=== PATIENT | female | born 1950 | race Caucasian/White ===

== ENCOUNTER 2018-02-19 08:44 | Day surgery (SDC) | payer MEDICARE, OTHER, SELFPAY ==
--- NOTE | 2018-02-19 | PATH_ITS ---
[facility] Accession Number: [id number] . 01 Material submitted: . BIOPSY OF GASTRIC ULCER . 02 Diagnosis: Specimen Designated Biopsy Gastric Ulcer: Fragments of gastric fundic mucosa with foveolar hyperplasia, mucosal hyperemia, without associated significant inflammation. Negative for evidence of ulceration. Negative for evidence of Helicobacter on H/E stain. Negative for intestinal metaplasia. . . . COMMENT: Case reviewed by Dr. Rob Silver who concurs with the diagnosis. MRV/02/20/2018 . 02 Electronically signed: . Alf Castillo MD, Pathologist NPI- [id number] . 01 Gross description: . Received in one formalin-filled container, labeled with the patient's name, labeled gastric ulcer, are two 0.2 cm portions of tissue, entirely submitted in one cassette. ([id number]) /FRR . 02 Pathologist provided ICD-10: K31.89 . 02 CPT . 994578 Performed at: 01 [facility] [address] [facility], [place], [place] [id number] MD Paxton Farrar MD Phone: [phone] Performed at: 02 [facility] [place] [address] [place], [place] [id number] MD Pérez Hernandez MD Phone: [phone]
[2018-02-19 09:15] VITALS: BP 118/77; PULSE 80; RESP 20; TEMP 36.6; O2SAT 98
[2018-02-19] MEDS: SODIUM CHLORIDE 0.9% 1,000 ML 200 ML IV (09:21)
--- NOTE | 2018-02-19 10:05 | PM.PREOP ---
Pre-operative Note Interval Note Pre-op Check: History & Physical Reviewed by Physician and Exam Performed H&P completed within 30 days and has changed as indicated here:: No change ASA Class (for procedural sedation): II
[2018-02-19] MEDS: LIDOCAINE 4% SOLN 50 ML 20 ML TOP (10:23)
[2018-02-19] MEDS: TETRACAINE/BENZOCAINE/BUTAMBEN (CETACAINE) BOTTLE 1 SPRAY TOP (10:24)
[2018-02-19] MEDS: fentaNYL 250 MCG/5 ML INJ IV (10:36)
[2018-02-19] MEDS: MIDAZOLAM 5 MG/5 ML VIAL IV (10:37)
[2018-02-19 10:38] VITALS: BP 116/70; PULSE 69; RESP 14; O2SAT 97
--- NOTE | 2018-02-19 10:39 | PM.OP.ENDO ---
Operative Date/Time/Diagnoses - Date of procedure: 02/19/18 Time of procedure: 10:40 Pre-op diagnosis: Iron deficient anemia Post-op diagnosis: same (With gastric ulcer and very altered gastric anatomy including a hiatal hernia) Procedure & Clinicians Study performed: EGD with cold biopsy Same procedure as scheduled: Yes Indications: Diagnostic to determine cause of anemia Surgeon: Ronald Edwards Procedure Notes SCOAP/Timeout: Performed Procedure in detail: The patient is placed in left lateral decubitus position and underwent IV sedation directed by the surgeon consisting of fentanyl and Versed. Topical anesthetic had been applied to the oropharynx. A bite block was inserted in the scope advanced through it into the esophagus. The esophagus was normal to reach the GE junction. There was a very elongated appearing hiatal hernia. I entered into I a small cysts stomach below the hernia which insufflated well. There was an obvious gastric ulcer present. The edges were mildly heaped but appeared to be more peptic than malignant. Pyloric channel was almost unidentifiable. It was widely patent and I entered into the duodenal bulb without any effort at all. The duodenum was normal to the 4th part. The scope was brought back and retroflexed. I could see what appeared to be a hiatal hernia from below. However in had retrospect I am not sure that is what I was looking at. Please see below. I took biopsies of the edge of the ulcer. The scope was then slowly brought up into the more proximal portion of the stomach which initially seemed like he had a 15 cm hiatal hernia. But then when I reached the top of this area there was another narrowing as though there were 2 hiatal hernias or a long segment of tubular stomach with a 5 cm hiatal hernia above and a GE junction located at 30 cm from the incisors. The anatomy was quite distorted despite the patient denying having any surgery on her stomach. In any event the scope was removed and the patient tolerated the procedure well. Scope withdrawal time: Not applicable Sedation minutes: 15 Findings: gastric ulcer, hiatal hernia and other findings (Long tubular stomach verses huge hiatal hernia with over half of the stomach in the chest) Specimen(s): other (Edge of ulcer biopsied) Complications: none Recommendations: Start medication(s) (Omeprazole 20 mg p.o. b.i.d.) and Other recommendation (EGD in about 3 months to confirm healing) Plan for aftercare: See patient in about 2-3 months in the office Follow up: months (Two or 3) Disposition: PACU
[2018-02-19 10:46] VITALS: BP 111/59; PULSE 72; RESP 14; TEMP 36.6; O2SAT 95
--- NOTE | 2018-02-19 10:48 | SUR.PHASEI ---
stable pacu stay, to opd.
[2018-02-19 10:54] VITALS: BP 110/71; PULSE 68; RESP 16; TEMP 36.4; O2SAT 99
--- NOTE | 2018-02-19 11:02 | SUR.PHASEII ---
dr kowalskihy here to talk with pt and her . both voiced an understanding of what was discussed.
== END 2018-02-19 11:05 | disposition home or self-care (01) ==
PROVIDERS: Family Provider Naturopath; PCP Family Medicine; Visit Provider Specialist
PROC: 0DJ08ZZ Inspection of Upper Intestinal Tract, Via Natural or Artificial Opening Endoscopic (ICD-10-PCS; CPT 43235; principal; 2018-02-19 09:45)
DX: D50.9 Iron deficiency anemia, unspecified (principal); E03.9 Hypothyroidism, unspecified; K44.9 Diaphragmatic hernia without obstruction or gangrene; K25.9 Gastric ulcer, unspecified as acute or chronic, without hemorrhage or perforation
CPT/HCPCS: 43239; 99152; J2250; J3010

== ENCOUNTER → 2018-03-19 10:11 | Outpatient (CLI) | payer MEDICARE, OTHER, SELFPAY ==
[2018-03-19 10:50] LABS: Add Manual Diff / Slide Review NO; Basophils Percent Auto 0.6 % (0-2); Eosinophils Percent Auto 1.8 % (2-4); Hematocrit 42.6 % (36-46); Hemoglobin 14.9 g/dL (12.0-16.0); Lymphocytes Percent Auto 32.1 % (25-40); Mean Corpuscular HGB Conc 34.9 % (30-36); Mean Corpuscular Hemoglobin 31.3 PG (26-34); Mean Corpuscular Volume 89.6 fL (80-100); Monocytes Percent Auto 7.6 % (3-14); Neutrophils Absolute Auto 3000 /uL (3000-5900); Neutrophils Percent Auto 57.9 % (50-75); Platelet Count 207 X10^3/uL (150-400); Red Blood Cell Count 4.76 X10^6/uL (4.0-5.2); White Blood Cell Count 5.1 X10^3/uL (4.5-11.0)
[2018-03-19 11:40] LABS: Ferritin 29.9 ng/mL (11.1-264)
[2018-03-19 12:09] LABS: Free T4, Direct Thyroxine 0.84 ng/dL (0.78-2.19)
== END ==
PROVIDERS: Family Provider Naturopath; PCP Family Medicine; Visit Provider Family Medicine
DX: D64.9 Anemia, unspecified (principal); K25.9 Gastric ulcer, unspecified as acute or chronic, without hemorrhage or perforation; R89.9 Unspecified abnormal finding in specimens from other organs, systems and tissues; K44.9 Diaphragmatic hernia without obstruction or gangrene
CPT/HCPCS: 36415; 82728; 84439; 84443; 85025

== ENCOUNTER → 2018-05-06 09:39 | Outpatient (CLI) | payer MEDICARE, OTHER, SELFPAY ==
[2018-05-06 10:01] LABS: Add Manual Diff / Slide Review NO; Basophils Percent Auto 0.8 % (0-2); Eosinophils Percent Auto 1.5 % (2-4); Hematocrit 44.3 % (36-46); Hemoglobin 15.5 g/dL (12.0-16.0); Lymphocytes Percent Auto 36.2 % (25-40); Mean Corpuscular Hemoglobin 31.2 PG (26-34); Mean Corpuscular Volume 89.2 fL (80-100); Monocytes Percent Auto 7.5 % (3-14); Neutrophils Absolute Auto 2700 /uL (3000-5900); Platelet Count 218 X10^3/uL (150-400); Red Blood Cell Count 4.97 X10^6/uL (4.0-5.2); Red Cell Distribution Width 12.9 % (11.6-14.8)
[2018-05-06 11:33] LABS: Ferritin 45.5 ng/mL (11.1-264)
== END ==
PROVIDERS: Family Provider Naturopath; PCP Specialist; Visit Provider Family Medicine
DX: D64.9 Anemia, unspecified (principal); K25.9 Gastric ulcer, unspecified as acute or chronic, without hemorrhage or perforation
CPT/HCPCS: 36415; 82728; 85025

== ENCOUNTER 2018-05-17 08:24 | Day surgery (SDC) | payer MEDICARE, OTHER, SELFPAY ==
[2018-05-17 08:45] VITALS: BP 129/77; PULSE 77; RESP 12; TEMP 36.2; O2SAT 97; BMI 30.7
--- NOTE | 2018-05-17 09:52 | PM.HP.1 ---
History of Present Illness Date Patient Seen: 05/17/18 Time Patient Seen: 09:52 Chief complaint: [id number] Narrative: The patient is a woman who gastric ulcer diagnosed this summer. She has undergone treatment and is here to have confirmation of healing so her medication can be stopped. Patient History Medical History Gastric ulcer (Acute ~12/2017) Acquired hypothyroidism (Chronic 07/26/15) Hiatal hernia (Chronic 07/26/15) Essential hypertension (Chronic 07/26/15) Primary osteoarthritis involving multiple joints (Chronic 07/26/15) Hypertension (Chronic) Surgical History H/O arthroscopic knee surgery (Resolved) H/O hysterectomy for benign disease (Resolved) Family & Social History Family History: Reviewed 05/17/18 by Ronald Edwards MD Social History: household members spouse Tobacco & Substance use: Smoking Status Former smoker Meds Home Medications Medication Instructions Recorded Confirmed Type BOSWELLIA DYLON EXTRACT 1 pow NA #0 06/01/11 05/01/18 History (#BOSWELLIA DYLON EXTRACT) [FISH OIL] 1,000 mg PO BID #0 06/01/11 05/01/18 History [VITAMIN D] 1,000 mg PO BID #0 06/01/11 05/01/18 History loratadine [Claritin RediTabs] 2.5 mg PO QDAY #0 12/19/12 05/01/18 History Ferrasorb 1 tab PO BID 02/19/18 05/01/18 History L-Glutamine 1 tab PO DAILY 02/19/18 05/01/18 History Nature-Throid 97 mg PO DAILY 02/19/18 05/01/18 History Similsan 2 drp INTRAOCULAR DAILY 02/19/18 05/01/18 History Tumeric 2 tab PO DAILY 02/19/18 05/01/18 History [estriol] See Label Instructions .ROUTE 02/19/18 05/01/18 History .COMPLEX magnesium citrate 200 mg PO BEDTIME 02/19/18 05/01/18 History olmesartan [Benicar] 2.5 mg PO QDAY 02/19/18 05/01/18 History omeprazole 20 mg PO BID #60 tab 02/19/18 05/01/18 Rx Megasporebiotic 2 cap PO 03/05/18 05/01/18 History aloe vera juice 2 oz PO 03/05/18 05/01/18 History metronidazole 1 % topical gel 1 applictn TOP DAILY 03/05/18 05/01/18 History zinc gluconate 30 mg tablet 30 mg PO DAILY tab 03/19/18 05/01/18 History hydrochlorothiazide 25 mg tablet 6.25 mg PO DAILY #30 tab 04/09/18 05/01/18 Rx deglycyrrhizinated licorice PO 05/01/18 05/01/18 History Allergies Allergy/AdvReac Type Severity Reaction Status Date / Time adhesive tape [ADHESIVE TAPE] Allergy Unknown Verified 05/01/18 09:58 casein AdvReac Intermediate flushing, Verified 05/01/18 09:58 cold symptoms amlodipine [AMLODIPINE] AdvReac Mild ANXIETY Verified 05/01/18 09:58 erythromycin base AdvReac Mild GI Verified 05/01/18 09:58 [ERYTHROMYCIN BASE] INTOLERANCE hydrocodone [HYDROCODONE] AdvReac Mild SYNCOPE Verified 05/01/18 09:58 Review of Systems Review of Systems No chest pain or heart attacks shortness of breath cough cold or asthma. No black or bloody bowel movements. No seizures or blackouts. Exam Vital Signs (past 8 hours): - 05/17/18 08:45 Temperature 97.2 F L Pulse Rate 77 Respiratory Rate 12 Blood Pressure 129/77 Pulse Oximetry 97 Oxygen Delivery Method Room Air Narrative Exam Narrative: Co Operative no apparent distress. Eyes are nonicteric. Lungs are clear to auscultation without rales or rhonchi. Heart regular rate and rhythm without murmur gallop. Abdomen is protuberant soft nontender without mass. The patient is alert and oriented x3 speech rate and content are appropriate. Assessment & Plan Plan: Assessment/Plan Narrative: Patient with a history of a gastric ulcer here for repeat EGD to confirm healing. I have discussed the procedure with her including risks of bleeding and perforation. She appears to understand wishes to proceed.
--- NOTE | 2018-05-17 09:56 | PM.PREOP ---
Pre-operative Note Interval Note Pre-op Check: Yes History & Physical exam performed today by Physician Changes: No ASA Class (for procedural sedation): II
[2018-05-17] MEDS: TETRACAINE/BENZOCAINE/BUTAMBEN (CETACAINE) BOTTLE 1 SPRAY TOP (10:02)
[2018-05-17] MEDS: MIDAZOLAM 5 MG/5 ML VIAL IV (10:03)
[2018-05-17] MEDS: LIDOCAINE 4% SOLN 50 ML 20 ML TOP (10:03)
[2018-05-17] MEDS: fentaNYL 250 MCG/5 ML INJ IV (10:04)
--- NOTE | 2018-05-17 10:09 | PM.OP.ENDO ---
Operative Date/Time/Diagnoses Date of procedure: 05/17/18 Time of procedure: 10:09 Pre-op diagnosis: History of gastric ulcer. Post-op diagnosis: same (Healed gastric ulcer. Large hiatal hernia.) Procedure & Clinicians Study performed: EGD Same procedure as scheduled: Yes Indications: Confirm healing Surgeon: Ronald Edwards Procedure Notes SCOAP/Timeout: Performed Procedure in detail: The patient had topical anesthetic applied to oropharynx. She was placed in left lateral decubitus position and underwent IV sedation directed by the surgeon consisting of fentanyl and Versed. A bite block was inserted and the scope was advanced through it into the esophagus. The esophagus was unremarkable. GE junction was noted at 32 cm from the incisors. The patient was noted to have a large hiatal hernia. The stomach insufflated well. There were no lesions seen in the body, antrum or at the incisura. The pyloric channel was [widely patent]. The duodenum was unremarkable to the 3rd part. The scope was brought back into the stomach and retroflexed. The proximal stomach[was remarkable for large hiatal hernia.]. The scope was straightened and brought out through the esophagus again. No lesions were seen. The scope was removed and the patient tolerated the procedure well. Scope withdrawal time: Not applicable Sedation minutes: 8 Findings: hiatal hernia and other findings (Ulcer healed) Specimen(s): none sent Complications: none Recommendations: Stop medication(s) (The patient can stop her proton pump inhibitor) Follow up: as needed Disposition: PACU
[2018-05-17] MEDS: SODIUM CHLORIDE 0.9% 1,000 ML 200 ML IV (10:13)
[2018-05-17 10:32] VITALS: BP 125/70; PULSE 77; RESP 16; TEMP 36.2; O2SAT 96
== END 2018-05-17 10:43 | disposition home or self-care (01) ==
PROVIDERS: Family Provider Naturopath; PCP Specialist; Referring Provider Family Medicine; Visit Provider Specialist
PROC: 0DJ08ZZ Inspection of Upper Intestinal Tract, Via Natural or Artificial Opening Endoscopic (ICD-10-PCS; CPT 43235; principal; 2018-05-17 09:45)
DX: Z87.11 Personal history of peptic ulcer disease (principal); K44.9 Diaphragmatic hernia without obstruction or gangrene; E03.9 Hypothyroidism, unspecified; I10 Essential (primary) hypertension; Z87.891 Personal history of nicotine dependence
CPT/HCPCS: 43235; 99152; J2250; J3010

== ENCOUNTER → 2018-08-28 10:06 | Outpatient (CLI) | payer MEDICARE, OTHER, SELFPAY ==
[2018-08-28 11:23] LABS: Free T3, Triiodothyronine Free 2.78 pg/mL (2.77-5.27); Free T4, Direct Thyroxine 0.46 ng/dL (0.78-2.19)
== END ==
PROVIDERS: Family Provider Naturopath; PCP Family Medicine; Visit Provider Family Medicine
DX: E03.9 Hypothyroidism, unspecified (principal)
CPT/HCPCS: 36415; 84439; 84443; 84481

== ENCOUNTER → 2018-09-26 09:45 | Outpatient (CLI) | payer MEDICARE, OTHER, SELFPAY ==
[2018-09-26 12:37] LABS: Free T3, Triiodothyronine Free 5.03 pg/mL (2.77-5.27)
[2018-09-26 12:51] LABS: Thyroid Stimulating Hormone 0.33 uIU/mL (0.47-4.68)
== END ==
PROVIDERS: Family Provider Naturopath; PCP Family Medicine; Visit Provider Family Medicine
DX: E03.9 Hypothyroidism, unspecified (principal)
CPT/HCPCS: 36415; 84439; 84443; 84481

== ENCOUNTER → 2018-12-11 08:11 | Outpatient (CLI) | payer MEDICARE, OTHER, SELFPAY ==
[2018-12-11 09:44] LABS: Add Manual Diff / Slide Review NO; Basophils Absolute Auto 0 /uL (0-100); Basophils Percent Auto 0.8 % (0-2); Eosinophils Absolute Auto 100 /uL (0-450); Eosinophils Percent Auto 1.8 % (2-4); Hematocrit 37.2 % (36-46); Hemoglobin 11.7 g/dL (12.0-16.0); Lymphocytes Absolute Auto 1600 /uL (1100-4500); Mean Corpuscular HGB Conc 31.5 % (30-36); Monocytes Absolute Auto 400 /uL (0-900); Neutrophils Absolute Auto 2400 /uL (1500-7000); Neutrophils Percent Auto 53.4 % (50-75); Platelet Count 234 X10^3/uL (150-400); Red Blood Cell Count 4.89 X10^6/uL (4.0-5.2); White Blood Cell Count 4.5 X10^3/uL (4.5-11.0)
[2018-12-11 10:26] LABS: Alanine Aminotransferase 40 IU/L (9-52); Albumin Globulin Ratio 1.5 (1.0-2.8); Alkaline Phosphatase 59 U/L (38-126); Aspartate Aminotransferase 31 IU/L (14-36); BUN Creatinine Ratio 21.4 (6-22); Bilirubin Total 0.5 mg/dL (0.2-1.3); Blood Urea Nitrogen 15 mg/dL (7-17); Calcium 9.3 mg/dL (8.4-10.2); Carbon Dioxide 22 mmol/L (22-32); Chloride 104 mmol/L (98-107); Cholesterol 179 mg/dL (140-199); Estimated Glomerular Filt Rate > 60.0 mL/min (>60); Globulin 2.6 g/dL (1.7-4.1); Glucose 91 mg/dL (80-110); HDL Cholesterol 51 mg/dL (40-60); HEMOLYSIS < 15 (0-50); LDL Cholesterol Calculated 110 mg/dL (<100); Potassium 3.7 mmol/L (3.4-5.1); Sodium 137 mmol/L (137-145); Total Protein 6.6 g/dL (6.3-8.2); Triglycerides 88 mg/dL (35-150)
[2018-12-11 10:27] LABS: Free T3, Triiodothyronine Free 8.48 pg/mL (2.77-5.27); Free T4, Direct Thyroxine 1.31 ng/dL (0.78-2.19)
[2018-12-11 10:41] LABS: Thyroid Stimulating Hormone < 0.02 uIU/mL (0.47-4.68)
[2018-12-11 10:50] LABS: Ferritin 7.7 ng/mL (11.1-264)
[2018-12-13 14:25] LABS: Thyroid Peroxidase Antibodies 49 IU/mL (< 9)
[2018-12-16 17:57] LABS: Triiodothyronine T3 Reverse 18 ng/dL (8-25)
== END ==
PROVIDERS: Family Provider Naturopath; PCP Family Medicine; Visit Provider Family Medicine
DX: E03.9 Hypothyroidism, unspecified (principal); D64.9 Anemia, unspecified; E66.9 Obesity, unspecified; I10 Essential (primary) hypertension; K25.9 Gastric ulcer, unspecified as acute or chronic, without hemorrhage or perforation; R89.9 Unspecified abnormal finding in specimens from other organs, systems and tissues; Z13.220 Encounter for screening for lipoid disorders
CPT/HCPCS: 36415; 80053; 80061; 82728; 84439; 84443; 84481; 84482; 85025; 86376

== ENCOUNTER → 2018-12-23 10:46 | Outpatient (CLI) | payer MEDICARE, OTHER, SELFPAY ==
[2018-12-23 12:00] LABS: Occult Blood 1 Negative (Negative); Occult Blood 2 Negative (Negative); Occult Blood 3 Negative (Negative)
== END ==
PROVIDERS: Family Provider Naturopath; PCP Family Medicine; Visit Provider Family Medicine
DX: K25.9 Gastric ulcer, unspecified as acute or chronic, without hemorrhage or perforation (principal)
CPT/HCPCS: 82270; 86677

== ENCOUNTER → 2018-12-23 11:01 | Outpatient (CLI) | payer MEDICARE, OTHER, SELFPAY ==
--- NOTE | 2018-12-23 | DI.MG.S_ITS ---
BILATERAL DIGITAL SCREENING MAMMOGRAM 3D/2D WITH CAD: 12/23/2018 CLINICAL: Routine screening. Comparison is made to exams dated: 07/31/2017 mammogram, 07/13/2016 mammogram, and 07/12/2015 mammogram - [facility]. There are scattered fibroglandular elements in both breasts. Current study was also evaluated with a Computer Aided Detection (CAD) system. No significant masses, calcifications, or other findings are seen in either breast. There has been no significant interval change. IMPRESSION: NEGATIVE There is no mammographic evidence of malignancy. A 1 year screening mammogram is recommended. This exam was interpreted at Station ID: [id number]. NOTE: For mammograms, a report in lay terms will be sent to the patient. Approximately 15% of breast malignancies will not be visualized mammographically. In the management of a palpable breast mass, a negative mammogram must not discourage biopsy of a clinically suspicious lesion. Electronically Signed By: Guillermo banks/marian:12/23/2018 12:22:35 copy to: AZEEM FREY letter sent: Normal Exam ACR BI-RADS Category 1: Negative 3341F
== END ==
PROVIDERS: Family Provider Naturopath; PCP Family Medicine; Visit Provider Family Medicine
DX: Z12.31 Encounter for screening mammogram for malignant neoplasm of breast (principal)
CPT/HCPCS: 77063; 77067

== ENCOUNTER → 2019-01-27 10:37 | Outpatient (CLI) | payer MEDICARE, OTHER, SELFPAY ==
[2019-01-27 11:37] LABS: Add Manual Diff / Slide Review NO; Basophils Absolute Auto 0 /uL (0-100); Basophils Percent Auto 0.4 % (0-2); Eosinophils Absolute Auto 100 /uL (0-450); Eosinophils Percent Auto 1.3 % (2-4); Hematocrit 44.3 % (36-46); Hemoglobin 14.8 g/dL (12.0-16.0); Lymphocytes Absolute Auto 1600 /uL (1100-4500); Lymphocytes Percent Auto 25.6 % (25-40); Mean Corpuscular HGB Conc 33.4 % (30-36); Mean Corpuscular Hemoglobin 27.1 PG (26-34); Mean Corpuscular Volume 81.2 fL (80-100); Monocytes Absolute Auto 400 /uL (0-900); Monocytes Percent Auto 6.6 % (3-14); Neutrophils Absolute Auto 4100 /uL (1500-7000); Neutrophils Percent Auto 66.1 % (50-75); Platelet Count 212 X10^3/uL (150-400); Red Blood Cell Count 5.45 X10^6/uL (4.0-5.2); Red Cell Distribution Width 22.2 % (11.6-14.8); White Blood Cell Count 6.2 X10^3/uL (4.5-11.0)
[2019-01-27 11:42] LABS: Reticulocyte Count, Percent 1.2 % (1.06-2.63)
[2019-01-27 12:01] LABS: HEMOLYSIS < 15 (0-50); Iron 142 ug/dL (37-170)
[2019-01-27 12:03] LABS: Anisocytosis 2+
[2019-01-27 12:14] LABS: Percent Iron Saturation 37 % (15-50); Total Iron Binding Capacity 386 ug/dL (265-497); Transferrin 301 mg/dL (206-381)
[2019-01-27 12:37] LABS: Ferritin 30.3 ng/mL (11.1-264)
== END ==
PROVIDERS: Family Provider Naturopath; PCP Family Medicine; Visit Provider Family Medicine
DX: K25.9 Gastric ulcer, unspecified as acute or chronic, without hemorrhage or perforation (principal)
CPT/HCPCS: 36415; 82728; 83540; 83550; 85025; 85045

== ENCOUNTER → 2019-02-25 11:16 | Outpatient (CLI) | payer MEDICARE, OTHER, SELFPAY ==
[2019-02-25 12:04] LABS: Add Manual Diff / Slide Review NO; Basophils Absolute Auto 100 /uL (0-100); Basophils Percent Auto 0.7 % (0-2); Eosinophils Absolute Auto 100 /uL (0-450); Eosinophils Percent Auto 0.8 % (2-4); Hematocrit 43.4 % (36-46); Hemoglobin 14.4 g/dL (12.0-16.0); Lymphocytes Absolute Auto 1900 /uL (1100-4500); Lymphocytes Percent Auto 24.2 % (25-40); Mean Corpuscular HGB Conc 33.3 % (30-36); Mean Corpuscular Hemoglobin 28.4 PG (26-34); Mean Corpuscular Volume 85.2 fL (80-100); Monocytes Absolute Auto 600 /uL (0-900); Monocytes Percent Auto 7.7 % (3-14); Neutrophils Absolute Auto 5100 /uL (1500-7000); Neutrophils Percent Auto 66.6 % (50-75); Platelet Count 226 X10^3/uL (150-400); Red Blood Cell Count 5.09 X10^6/uL (4.0-5.2); Red Cell Distribution Width 20.1 % (11.6-14.8); White Blood Cell Count 7.6 X10^3/uL (4.5-11.0)
[2019-02-25 12:25] LABS: RBC Morphology Normal Morphology
[2019-02-25 13:06] LABS: Ferritin 19.2 ng/mL (11.1-264)
== END ==
PROVIDERS: Family Provider Naturopath; PCP Family Medicine; Referring Provider Specialist; Visit Provider Family Medicine
DX: K25.9 Gastric ulcer, unspecified as acute or chronic, without hemorrhage or perforation (principal)
CPT/HCPCS: 36415; 82728; 85025

== ENCOUNTER 2019-03-21 06:44 | Day surgery (SDC) | payer MEDICARE, OTHER, SELFPAY ==
[2019-03-21] VITALS (7 sets, daily range): BP systolic 119–138; BP diastolic 56–81; PULSE 61–81; RESP 13–16; TEMP 36.3–36.8; O2SAT 93–98; BMI 31.4
--- NOTE | 2019-03-21 | PATH_ITS ---
[facility] Accession Number: [id number] . 01 Material submitted: . PART A: duodenum - DUODENAL POLYP PART B: gastrointestinal site - BIOPSY PROXIMAL STOMACH . 02 Diagnosis: A. Biopsy, Duodenal Polyp: Benign Stanford's gland hyperplasia, negative for atypia. . B. Biopsy, Proximal Stomach: Mild chronic gastritis, focally active, involving fundic mucosa. Immunohistochemistry for Helicobacter pending, to be reported by addendum. Negative for intestinal metaplasia. Negative for dysplasia and malignancy. MRV/03/24/2019 . 02 Electronically signed: . Alf Castillo MD, Pathologist NPI- [id number] . 01 Gross description: . Part A: DUODENAL POLYP: Received in formalin are 2 fragment(s) of tellez, soft tissue measuring 0.4 x 0.3 x 0.1 cm to 0.1 x 0.1 x 0.1 cm submitted entirely in 1 cassette(s) Part B: BIOPSY PROXIMAL STOMACH: Received in formalin are multiple fragment(s) of tellez, soft tissue measuring 0.8 x 0.5 x 0.2 cm in aggregate submitted entirely in 1 cassette(s) /CKI /CKI . 02 Pathologist provided ICD-10: K29.70 . 02 CPT . 472105, 116746 Performed at: [address] [facility] [address] [facility], [place], [place] [id number] MD Paxton Farrar MD Phone: [phone] Performed at: 02 [facility] [address] [place], [place] [id number] MD Aria Mullen MD Phone: [phone]
[2019-03-21] MEDS: LACTATED RINGERS 1,000 ML 200 ML IV (07:05)
--- NOTE | 2019-03-21 08:10 | PM.PREOP ---
Pre-operative Note Interval Note History & Physical reviewed/Exam performed by Physician: Yes Changes to H&P: No H&P completed within 30 days and has changed as indicated here:: Please see H and P from 02/27 ASA Class (for procedural sedation): II
[2019-03-21] MEDS: LIDOCAINE 4% SOLN 50 ML 20 ML TOP (08:25)
[2019-03-21] MEDS: TETRACAINE/BENZOCAINE/BUTAMBEN (CETACAINE) BOTTLE 1 SPRAY TOP (08:25)
[2019-03-21] MEDS: fentaNYL 250 MCG/5 ML INJ IV (08:30)
[2019-03-21] MEDS: MIDAZOLAM 5 MG/5 ML VIAL IV (08:30)
--- NOTE | 2019-03-21 08:33 | SUR.OPER ---
GLASSES IN LABELED BAG TO PACU WITH PATIENT
--- NOTE | 2019-03-21 08:46 | PM.OP.ENDO ---
Operative Date/Time/Diagnoses Date of procedure: 03/21/19 Time of procedure: 08:46 Pre-op diagnosis: Anemia. History of gastric ulcers. Large hiatal hernia. Post-op diagnosis: same (Patient had linear erosions in her proximal stomach just below the hiatal hernia. Small duodenal polypoid lesion removed) Procedure & Clinicians Study performed: EGD with cold biopsy Same procedure as scheduled: Yes Indications: Anemia Surgeon: Ronald Edwards Procedure Notes SCOAP/Timeout: Performed Procedure in detail: The patient had topical anesthetic applied to oropharynx. She was placed in left lateral decubitus position and underwent IV sedation directed by the surgeon consisting of fentanyl and Versed. A bite block was inserted and the scope was advanced through it into the esophagus. The esophagus was unremarkable. GE junction was noted at 30 cm from the incisors. There was a sharp turn in the distal esophagus but otherwise there was no obvious narrowing. No evidence of Robison's esophagus visibly.. The stomach insufflated well. There was an obvious large hiatal hernia. There were no lesions seen in the body, antrum or at the incisura. The pyloric channel was widely patent. The duodenum was remarkable for a small polypoid lesion in the bulb which I biopsied and removed. The remainder of the duodenum was normal To the 4th part. The scope was brought back into the stomach and retroflexed. The proximal stomach appeared to be principally in the chest that is above the diaphragm compression of the stomach. There were some linear erosions just below the edge of the hiatal hernia and these were biopsied. There was also some mild inflammation biopsied and placed in the same container. I measured the hiatal hernia to be approximately 10 cm. The scope was straightened and brought out through the esophagus again. No lesions were seen. The scope was removed and the patient tolerated the procedure well. Scope withdrawal time: Not applicable Sedation minutes: 18 Findings: hiatal hernia and polyp (First part of the duodenum) Specimen(s): other (Polyp. Biopsies of linear erosion in the proximal stomach) Complications: none Recommendations: Continue medication(s) (Omeprazole) Follow up: months (Three) Disposition: PACU
--- NOTE | 2019-03-21 09:02 | SUR.PHASEI ---
Stable, alert and oriented. Tolerating ice chips well, VSS. Preparing to transfer. Glasses returned to patient.
--- NOTE | 2019-03-21 09:44 | SUR.PHASEII ---
Assummed care from Miguel Angel Crespo d/maria esther instructions performed by her, pt and stated they understood all. Pt dressed with assist from , left when ready and in stable condition.
== END 2019-03-21 09:50 | disposition home or self-care (01) ==
PROVIDERS: Family Provider Naturopath; PCP Family Medicine; Visit Provider Specialist
PROC: 0DJ08ZZ Inspection of Upper Intestinal Tract, Via Natural or Artificial Opening Endoscopic (ICD-10-PCS; CPT 43235; principal; 2019-03-21 07:45)
DX: K29.70 Gastritis, unspecified, without bleeding (principal); D64.9 Anemia, unspecified; K44.9 Diaphragmatic hernia without obstruction or gangrene; I10 Essential (primary) hypertension; E03.9 Hypothyroidism, unspecified
CPT/HCPCS: 43239; 88305; 88342; 99152; J2250; J3010

== ENCOUNTER → 2019-05-07 14:15 | Oncology outpatient (ONC) | payer MEDICARE, OTHER, SELFPAY ==
[2019-04-16 14:26] VITALS: BP 150/77; PULSE 73; RESP 20; TEMP 36.9; O2SAT 97
[2019-04-16] MEDS: IRON SUCROSE 250 MG in SODIUM CHLORIDE 0.9% 100 ML 150 ML IV (14:42)
[2019-04-24 14:32] VITALS: BP 148/80; PULSE 77; RESP 18; TEMP 36.4; O2SAT 97
[2019-04-24] MEDS: IRON SUCROSE 250 MG in SODIUM CHLORIDE 0.9% 100 ML 150 ML IV (14:38)
[2019-04-30] MEDS: IRON SUCROSE 250 MG in SODIUM CHLORIDE 0.9% 100 ML 150 ML IV (14:43)
[2019-04-30 14:52] VITALS: BP 124/77; PULSE 70; RESP 16; TEMP 36.7; O2SAT 98
[2019-05-07] MEDS: IRON SUCROSE 250 MG in SODIUM CHLORIDE 0.9% 100 ML 150 ML IV (14:46)
[2019-05-07 15:18] VITALS: BP 139/74; PULSE 73; RESP 16; TEMP 36.6; O2SAT 97
== END ==
PROVIDERS: Family Provider Naturopath; PCP Family Medicine; Visit Provider Family Medicine
DX: D64.9 Anemia, unspecified (principal); E06.3 Autoimmune thyroiditis; K29.60 Other gastritis without bleeding
CPT/HCPCS: 96365; 96366; J1756

== ENCOUNTER → 2019-05-14 09:29 | Outpatient (CLI) | payer MEDICARE, OTHER, SELFPAY ==
[2019-05-14 11:05] LABS: Add Manual Diff / Slide Review NO; Basophils Absolute Auto 0 /uL (0-100); Basophils Percent Auto 0.5 % (0-2); Eosinophils Absolute Auto 100 /uL (0-450); Eosinophils Percent Auto 0.9 % (2-4); Hematocrit 43.7 % (36-46); Hemoglobin 15.1 g/dL (12.0-16.0); Lymphocytes Absolute Auto 1900 /uL (1100-4500); Lymphocytes Percent Auto 33.6 % (25-40); Mean Corpuscular HGB Conc 34.6 % (30-36); Mean Corpuscular Hemoglobin 31.2 PG (26-34); Mean Corpuscular Volume 90.1 fL (80-100); Monocytes Absolute Auto 400 /uL (0-900); Monocytes Percent Auto 6.6 % (3-14); Neutrophils Absolute Auto 3400 /uL (1500-7000); Neutrophils Percent Auto 58.4 % (50-75); Platelet Count 249 X10^3/uL (150-400); Red Blood Cell Count 4.85 X10^6/uL (4.0-5.2); Red Cell Distribution Width 13.2 % (11.6-14.8); White Blood Cell Count 5.7 X10^3/uL (4.5-11.0)
[2019-05-14 11:09] LABS: HEMOLYSIS < 15 (0-50); Iron 115 ug/dL (37-170)
[2019-05-14 11:21] LABS: Percent Iron Saturation 35 % (15-50); Total Iron Binding Capacity 328 ug/dL (265-497); Transferrin 279 mg/dL (206-381)
== END ==
PROVIDERS: Family Provider Naturopath; PCP Family Medicine; Visit Provider Family Medicine
DX: D50.9 Iron deficiency anemia, unspecified (principal)
CPT/HCPCS: 36415; 82728; 83540; 83550; 85025

== ENCOUNTER → 2019-06-11 09:27 | Outpatient (CLI) | payer MEDICARE, OTHER, SELFPAY ==
[2019-06-11 10:27] LABS: Add Manual Diff / Slide Review NO; Basophils Absolute Auto 0 /uL (0-100); Basophils Percent Auto 0.5 % (0-2); Eosinophils Absolute Auto 0 /uL (0-450); Eosinophils Percent Auto 0.9 % (2-4); Hematocrit 42.9 % (36-46); Lymphocytes Absolute Auto 1600 /uL (1100-4500); Lymphocytes Percent Auto 35.3 % (25-40); Mean Corpuscular HGB Conc 35.1 % (30-36); Mean Corpuscular Hemoglobin 31.5 PG (26-34); Mean Corpuscular Volume 89.9 fL (80-100); Monocytes Absolute Auto 300 /uL (0-900); Monocytes Percent Auto 7.7 % (3-14); Neutrophils Absolute Auto 2500 /uL (1500-7000); Neutrophils Percent Auto 55.6 % (50-75); Platelet Count 204 X10^3/uL (150-400); Red Blood Cell Count 4.77 X10^6/uL (4.0-5.2); Red Cell Distribution Width 13.5 % (11.6-14.8); White Blood Cell Count 4.4 X10^3/uL (4.5-11.0)
[2019-06-11 10:55] LABS: Free T4, Direct Thyroxine 1.41 ng/dL (0.78-2.19)
[2019-06-11 11:08] LABS: Thyroid Stimulating Hormone < 0.02 uIU/mL (0.47-4.68)
[2019-06-17 14:28] LABS: Triiodothyronine T3 Reverse 20 ng/dL (8-25)
== END ==
PROVIDERS: Family Provider Naturopath; PCP Family Medicine; Visit Provider Family Medicine
DX: D50.9 Iron deficiency anemia, unspecified (principal); E06.3 Autoimmune thyroiditis; I10 Essential (primary) hypertension; K25.9 Gastric ulcer, unspecified as acute or chronic, without hemorrhage or perforation
CPT/HCPCS: 36415; 82728; 84439; 84443; 84481; 84482; 85025

== ENCOUNTER → 2019-07-16 09:16 | Outpatient (CLI) | payer MEDICARE, OTHER, SELFPAY ==
[2019-07-16 10:55] LABS: Add Manual Diff / Slide Review NO; Basophils Absolute Auto 0 /uL (0-100); Basophils Percent Auto 0.5 % (0-2); Eosinophils Absolute Auto 0 /uL (0-450); Eosinophils Percent Auto 0.8 % (2-4); Hematocrit 45.1 % (36-46); Hemoglobin 15.4 g/dL (12.0-16.0); Lymphocytes Absolute Auto 1700 /uL (1100-4500); Lymphocytes Percent Auto 33.7 % (25-40); Mean Corpuscular HGB Conc 34.2 % (30-36); Mean Corpuscular Hemoglobin 31.2 PG (26-34); Mean Corpuscular Volume 91.3 fL (80-100); Monocytes Absolute Auto 400 /uL (0-900); Monocytes Percent Auto 7.2 % (3-14); Neutrophils Absolute Auto 3000 /uL (1500-7000); Neutrophils Percent Auto 57.8 % (50-75); Platelet Count 223 X10^3/uL (150-400); Red Blood Cell Count 4.94 X10^6/uL (4.0-5.2); White Blood Cell Count 5.2 X10^3/uL (4.5-11.0)
[2019-07-16 11:10] LABS: HEMOLYSIS < 15 (0-50); Iron 118 ug/dL (37-170)
[2019-07-16 11:21] LABS: Percent Iron Saturation 32 % (15-50); Total Iron Binding Capacity 364 ug/dL (265-497); Transferrin 327 mg/dL (206-381)
== END ==
PROVIDERS: Family Provider Naturopath; PCP Family Medicine; Visit Provider Family Medicine
DX: D50.9 Iron deficiency anemia, unspecified (principal)
CPT/HCPCS: 36415; 82728; 83540; 83550; 85025

== ENCOUNTER → 2019-08-21 13:23 | Outpatient (CLI) | payer MEDICARE, OTHER, SELFPAY ==
[2019-08-21 15:25] LABS: Ferritin 87.4 ng/mL (11.1-264)
[2019-08-21 15:55] LABS: Free T3, Triiodothyronine Free 6.17 pg/mL (2.77-5.27); Free T4, Direct Thyroxine 2.81 ng/dL (0.78-2.19)
[2019-08-21 16:08] LABS: Thyroid Stimulating Hormone < 0.02 uIU/mL (0.47-4.68)
[2019-08-22 10:08] LABS: HEMOLYSIS < 15 (0-50); Iron 88 ug/dL (37-170)
[2019-08-22 10:19] LABS: Percent Iron Saturation 24 % (15-50); Total Iron Binding Capacity 363 ug/dL (265-497); Transferrin 311 mg/dL (206-381)
== END ==
PROVIDERS: Family Provider Naturopath; PCP Family Medicine; Visit Provider Family Medicine
DX: D50.9 Iron deficiency anemia, unspecified (principal); E06.3 Autoimmune thyroiditis; Z87.19 Personal history of other diseases of the digestive system; I10 Essential (primary) hypertension
CPT/HCPCS: 36415; 82728; 83540; 83550; 84439; 84443; 84481

== ENCOUNTER → 2019-10-13 10:01 | Outpatient (CLI) | payer MEDICARE, OTHER, SELFPAY ==
[2019-10-13 10:56] LABS: Add Manual Diff / Slide Review NO; Basophils Absolute Auto 0 /uL (0-100); Basophils Percent Auto 0.5 % (0-2); Eosinophils Absolute Auto 0 /uL (0-450); Eosinophils Percent Auto 0.7 % (2-4); Hemoglobin 15.3 g/dL (12.0-16.0); Lymphocytes Absolute Auto 1700 /uL (1100-4500); Lymphocytes Percent Auto 36.1 % (25-40); Mean Corpuscular HGB Conc 34.6 % (30-36); Mean Corpuscular Hemoglobin 30.4 PG (26-34); Mean Corpuscular Volume 87.7 fL (80-100); Monocytes Absolute Auto 400 /uL (0-900); Monocytes Percent Auto 7.8 % (3-14); Neutrophils Absolute Auto 2600 /uL (1500-7000); Neutrophils Percent Auto 54.9 % (50-75); Platelet Count 200 X10^3/uL (150-400); Red Blood Cell Count 5.02 X10^6/uL (4.0-5.2); Red Cell Distribution Width 12.9 % (11.6-14.8); White Blood Cell Count 4.7 X10^3/uL (4.5-11.0)
[2019-10-13 11:25] LABS: HEMOLYSIS < 15 (0-50); Iron 116 ug/dL (37-170)
[2019-10-13 11:37] LABS: Transferrin 328 mg/dL (206-381)
[2019-10-13 11:46] LABS: Free T3, Triiodothyronine Free 6.17 pg/mL (2.77-5.27); Free T4, Direct Thyroxine 3.03 ng/dL (0.78-2.19)
[2019-10-13 12:00] LABS: Thyroid Stimulating Hormone < 0.02 uIU/mL (0.47-4.68)
[2019-10-13 12:02] LABS: Percent Iron Saturation 31 % (15-50); Total Iron Binding Capacity 374 ug/dL (265-497)
[2019-10-13 12:25] LABS: Ferritin 51.3 ng/mL (11.1-264)
== END ==
PROVIDERS: Family Provider Naturopath; PCP Family Medicine; Referring Provider Family Medicine; Visit Provider Family Medicine
DX: D50.9 Iron deficiency anemia, unspecified (principal); E06.3 Autoimmune thyroiditis; Z87.19 Personal history of other diseases of the digestive system
CPT/HCPCS: 36415; 82728; 83540; 83550; 84439; 84443; 84481; 85025

== ENCOUNTER → 2020-07-06 13:18 | Outpatient (CLI) | payer MEDICARE, OTHER, SELFPAY ==
[2020-07-06 14:03] LABS: Add Manual Diff / Slide Review NO; Basophils Absolute Auto 0 /uL (0-100); Basophils Percent Auto 0.6 % (0-2); Eosinophils Absolute Auto 100 /uL (0-450); Eosinophils Percent Auto 0.8 % (2-4); Hematocrit 44.6 % (36-46); Hemoglobin 14.9 g/dL (12.0-16.0); Lymphocytes Absolute Auto 2000 /uL (1100-4500); Lymphocytes Percent Auto 33.6 % (25-40); Mean Corpuscular HGB Conc 33.3 % (30-36); Mean Corpuscular Hemoglobin 30.4 PG (26-34); Mean Corpuscular Volume 91.1 fL (80-100); Monocytes Absolute Auto 300 /uL (0-900); Monocytes Percent Auto 5.7 % (3-14); Neutrophils Absolute Auto 3600 /uL (1500-7000); Neutrophils Percent Auto 59.3 % (50-75); Platelet Count 198 X10^3/uL (150-400); Red Cell Distribution Width 13.2 % (11.6-14.8); White Blood Cell Count 6.1 X10^3/uL (4.5-11.0)
[2020-07-06 14:26] LABS: HEMOLYSIS < 15 (0-50); Iron 80 ug/dL (37-170)
[2020-07-06 14:28] LABS: Alanine Aminotransferase 38 IU/L (<35); Albumin 4.3 g/dL (3.5-5.0); Albumin Globulin Ratio 1.6 (1.0-2.8); Alkaline Phosphatase 74 U/L (38-126); Aspartate Aminotransferase 36 IU/L (14-36); BUN Creatinine Ratio 18.9 (6-22); Bilirubin Total 0.5 mg/dL (0.2-1.3); Blood Urea Nitrogen 14 mg/dL (7-17); Calcium 9.9 mg/dL (8.4-10.2); Carbon Dioxide 26 mmol/L (22-32); Chloride 105 mmol/L (98-107); Cholesterol 212 mg/dL (140-199); Estimated Glomerular Filt Rate > 60.0 mL/min (>60); Globulin 2.7 g/dL (1.7-4.1); Glucose 94 mg/dL (80-110); HDL Cholesterol 59 mg/dL (40-60); HEMOLYSIS < 15 (0-50); LDL Cholesterol Calculated 131 mg/dL (<100); Potassium 4.1 mmol/L (3.4-5.1); Sodium 138 mmol/L (137-145); Triglycerides 112 mg/dL (35-150)
[2020-07-06 14:36] LABS: Percent Iron Saturation 20 % (15-50); Total Iron Binding Capacity 397 ug/dL (265-497); Transferrin 315 mg/dL (206-381)
[2020-07-06 14:43] LABS: Free T3, Triiodothyronine Free 3.83 pg/mL (2.77-5.27); Free T4, Direct Thyroxine 2.17 ng/dL (0.78-2.19)
[2020-07-06 15:05] LABS: Ferritin 36 ng/mL (11-264)
[2020-07-06 15:27] LABS: Thyroid Stimulating Hormone < 0.015 uIU/mL (0.47-4.68)
[2020-07-06 18:49] LABS: Creatinine Urine Random 65.2 mg/dL
[2020-07-06 19:29] LABS: Microalbumin Urine Random < 0.6 mg/dL (0-1.6)
[2020-07-07 06:11] LABS: Thyroid Peroxidase Antibodies <9 IU/mL (0-34)
[2020-07-07 17:08] LABS: Anti Thyroglobulin Antibody <1.0 IU/mL (0.0-0.9)
[2020-07-12 19:48] LABS: Triiodothyronine T3 Reverse 19.3 ng/dL (9.2-24.1)
== END ==
PROVIDERS: Family Provider Naturopath; PCP Family Medicine; Referring Provider Family Medicine; Visit Provider Family Medicine
DX: D50.9 Iron deficiency anemia, unspecified (principal); E06.3 Autoimmune thyroiditis; K25.9 Gastric ulcer, unspecified as acute or chronic, without hemorrhage or perforation; E66.9 Obesity, unspecified; E78.5 Hyperlipidemia, unspecified; I10 Essential (primary) hypertension
CPT/HCPCS: 36415; 80053; 80061; 82043; 82570; 82728; 83540; 83550; 84439; 84443; 84481; 84482; 85025; 86376; 86800

== ENCOUNTER → 2020-12-16 16:06 | Outpatient (CLI) | payer MEDICARE, OTHER, SELFPAY ==
--- NOTE | 2020-12-16 | DI.MG.S_ITS ---
BILATERAL DIGITAL SCREENING MAMMOGRAM 3D/2D WITH CAD: 12/16/2020 CLINICAL: Routine screening. Comparison is made to exams dated: 12/23/2018 mammogram, 07/31/2017 mammogram, and 07/13/2016 mammogram - [facility]. There are scattered fibroglandular elements in both breasts. Current study was also evaluated with a Computer Aided Detection (CAD) system. No significant masses, calcifications, or other findings are seen in either breast. There has been no significant interval change. IMPRESSION: NEGATIVE There is no mammographic evidence of malignancy. A 1 year screening mammogram is recommended. This exam was interpreted at Station ID: [id number]. NOTE: For mammograms, a report in lay terms will be sent to the patient. Approximately 15% of breast malignancies will not be visualized mammographically. In the management of a palpable breast mass, a negative mammogram must not discourage biopsy of a clinically suspicious lesion. Electronically Signed By: Paxton nolasco/marian:12/16/2020 16:34:15 copy to: AZEEM FREY letter sent: Normal Exam ACR BI-RADS Category 1: Negative 3341F
== END ==
PROVIDERS: Family Provider Naturopath; PCP Family Medicine; Referring Provider Family Medicine; Visit Provider Family Medicine
DX: Z12.31 Encounter for screening mammogram for malignant neoplasm of breast (principal)
CPT/HCPCS: 77063; 77067

== ENCOUNTER → 2021-10-07 07:46 | Outpatient (CLI) | payer MEDICARE, OTHER, SELFPAY ==
[2021-10-07 09:13] LABS: Creatinine Urine Random 63.8 mg/dL
[2021-10-07 09:15] LABS: BUN Creatinine Ratio 20.8 (6-22); Blood Urea Nitrogen 16 mg/dL (7-17); Calcium 9.7 mg/dL (8.4-10.2); Carbon Dioxide 27 mmol/L (22-32); Chloride 105 mmol/L (98-107); Estimated Glomerular Filt Rate > 60.0 mL/min (>60); Glucose 91 mg/dL (80-110); HEMOLYSIS < 15 (0-50); Potassium 4.1 mmol/L (3.4-5.1); Sodium 137 mmol/L (137-145)
[2021-10-07 09:16] LABS: Microalbumin Urine Random < 0.6 mg/dL (0-1.6)
[2021-10-07 09:47] LABS: Ferritin 113 ng/mL (11-264)
== END ==
PROVIDERS: Family Provider Naturopath; PCP Family Medicine; Referring Provider Family Medicine; Visit Provider Family Medicine
DX: R53.82 Chronic fatigue, unspecified (principal); I10 Essential (primary) hypertension; D50.9 Iron deficiency anemia, unspecified
CPT/HCPCS: 36415; 80048; 82043; 82570; 82728

== ENCOUNTER → 2021-12-26 11:42 | Outpatient (CLI) | payer MEDICARE, OTHER, SELFPAY ==
[2021-12-27 16:48] LABS: Candida species Negative (Negative); Gardnerella vaginalis Negative (Negative); Trichomoas vaginalis Negative (Negative)
== END ==
PROVIDERS: Family Provider Naturopath; PCP Family Medicine; Visit Provider Obstetrics & Gynecology
DX: N76.0 Acute vaginitis (principal); B96.89 Other specified bacterial agents as the cause of diseases classified elsewhere
CPT/HCPCS: 87480; 87510; 87660

== ENCOUNTER → 2022-03-15 15:09 | Outpatient (CLI) | payer MEDICARE, OTHER, SELFPAY ==
--- NOTE | 2022-03-15 | DI.MG.S_ITS ---
BILATERAL DIGITAL SCREENING MAMMOGRAM 3D/2D WITH CAD: 03/15/2022 CLINICAL: Routine screening. Comparison is made to exams dated: 12/16/2020 mammogram, 12/23/2018 mammogram, and 07/31/2017 mammogram - [facility]. There are scattered fibroglandular elements in both breasts. Current study was also evaluated with a Computer Aided Detection (CAD) system. No significant masses, calcifications, or other findings are seen in either breast. There has been no significant interval change. IMPRESSION: NEGATIVE There is no mammographic evidence of malignancy. A 1 year screening mammogram is recommended. Based on the Tyrer Cuzick model (a risk assessment model) the patient's lifetime risk is 5.3% and her 10 year risk is 3.6%. According to the ACR, ACS, and NCCN guidelines, an annual breast MRI exam along with mammogram is recommended if the patient's lifetime risk is 20% or greater. This exam was interpreted at Station ID: [id number]. NOTE: For mammograms, a report in lay terms will be sent to the patient. Approximately 15% of breast malignancies will not be visualized mammographically. In the management of a palpable breast mass, a negative mammogram must not discourage biopsy of a clinically suspicious lesion. Electronically Signed By: Jaylin gillespie/marian:03/16/2022 08:49:36 copy to: AZEEM FREY letter sent: Normal Exam ACR BI-RADS Category 1: Negative 3341F
== END ==
PROVIDERS: Family Provider Naturopath; PCP Family Medicine; Referring Provider Pediatrics; Visit Provider Family Medicine
DX: Z12.31 Encounter for screening mammogram for malignant neoplasm of breast (principal)
CPT/HCPCS: 77063; 77067

== ENCOUNTER → 2022-10-31 08:49 | Outpatient (CLI) | payer MEDICARE, OTHER, SELFPAY ==
[2022-10-31 09:33] LABS: Add Manual Diff / Slide Review NO; Basophils Absolute Auto 100 /uL (0-100); Basophils Percent Auto 0.9 % (0-2); Eosinophils Absolute Auto 100 /uL (0-450); Eosinophils Percent Auto 1.3 % (2-4); Hematocrit 43.8 % (36-46); Hemoglobin 15.4 g/dL (12.0-16.0); Lymphocytes Absolute Auto 1900 /uL (1100-4500); Lymphocytes Percent Auto 35.5 % (25-40); Mean Corpuscular HGB Conc 35.2 % (30-36); Mean Corpuscular Hemoglobin 31.7 PG (26-34); Mean Corpuscular Volume 89.9 fL (80-100); Monocytes Absolute Auto 400 /uL (0-900); Neutrophils Absolute Auto 3000 /uL (1500-7000); Neutrophils Percent Auto 55.3 % (50-75); Platelet Count 214 X10^3/uL (150-400); Red Blood Cell Count 4.88 X10^6/uL (4.0-5.2); Red Cell Distribution Width 12.6 % (11.6-14.8); White Blood Cell Count 5.5 X10^3/uL (4.5-11.0)
[2022-10-31 09:44] LABS: HEMOLYSIS < 15 (0-50)
[2022-10-31 09:45] LABS: Iron 153 ug/dL (37-170)
[2022-10-31 10:16] LABS: Percent Iron Saturation 45 % (15-50); Total Iron Binding Capacity 337 ug/dL (265-497); Transferrin 250 mg/dL (206-381)
[2022-10-31 10:23] LABS: Ferritin 203 ng/mL (11-264)
[2022-10-31 10:34] LABS: Alanine Aminotransferase 43 IU/L (<35); Albumin 4.1 g/dL (3.5-5.0); Albumin Globulin Ratio 1.5 (1.0-2.8); Alkaline Phosphatase 70 U/L (38-126); Aspartate Aminotransferase 33 IU/L (14-36); BUN Creatinine Ratio 20.9 (6-22); Bilirubin Total 0.8 mg/dL (0.2-1.3); Blood Urea Nitrogen 14 mg/dL (7-17); Calcium 9.4 mg/dL (8.4-10.2); Carbon Dioxide 23 mmol/L (22-32); Chloride 102 mmol/L (98-107); Estimated Glomerular Filt Rate > 60 mL/min (>60); Globulin 2.7 g/dL (1.7-4.1); Glucose 93 mg/dL (80-110); HEMOLYSIS < 15 (0-50); Potassium 4.2 mmol/L (3.4-5.1); Sodium 135 mmol/L (137-145); Total Protein 6.8 g/dL (6.3-8.2)
[2022-10-31 11:30] LABS: Free T4, Direct Thyroxine 2.38 ng/dL (0.78-2.19)
[2022-10-31 11:44] LABS: Thyroid Stimulating Hormone < 0.015 uIU/mL (0.47-4.68)
== END ==
PROVIDERS: Family Provider Naturopath; PCP Family Medicine; Referring Provider Family Medicine; Visit Provider Family Medicine
DX: D50.8 Other iron deficiency anemias (principal); E06.3 Autoimmune thyroiditis; I10 Essential (primary) hypertension
CPT/HCPCS: 36415; 80053; 82728; 83540; 83550; 84439; 84443; 84481; 85025

== ENCOUNTER → 2022-12-26 10:17 | Outpatient (CLI) | payer MEDICARE, OTHER, SELFPAY ==
--- NOTE | 2022-12-26 10:19 | DI.RAD.S_ITS ---
PROCEDURE: XR HIP W PEL IF DONE KANU MIN 4V INDICATIONS: 3 months worsening pain w ambulation TECHNIQUE: AP pelvis with lateral view(s) of the bilateral hip(s). COMPARISON: None. FINDINGS: Bones: No fractures or dislocations. Pelvic ring appears intact. No suspicious bony lesions. Lower lumbar spine degenerative changes Soft tissues: The visualized bowel gas pattern is normal. No suspicious soft tissue calcifications. IMPRESSION: Lower lumbar spine degenerative changes. Unremarkable bilateral hips Approved by: Dharmesh Covington M.D. on 12/26/2022 at 13:50
== END ==
PROVIDERS: Family Provider Naturopath; PCP Family Medicine; Referring Provider Family Medicine; Visit Provider Family Medicine
DX: M25.551 Pain in right hip (principal); M47.816 Spondylosis without myelopathy or radiculopathy, lumbar region; M25.552 Pain in left hip
CPT/HCPCS: 73522

== ENCOUNTER → 2023-03-20 09:27 | Outpatient (CLI) | payer MEDICARE, OTHER, SELFPAY ==
[2023-03-20 10:43] LABS: Add Manual Diff / Slide Review NO; Basophils Absolute Auto 0 /uL (0-100); Basophils Percent Auto 0.6 % (0-2); Eosinophils Absolute Auto 100 /uL (0-450); Eosinophils Percent Auto 1.6 % (2-4); Hematocrit 44.2 % (36-46); Hemoglobin 15.4 g/dL (12.0-16.0); Lymphocytes Absolute Auto 1900 /uL (1100-4500); Lymphocytes Percent Auto 34.2 % (25-40); Mean Corpuscular HGB Conc 34.9 % (30-36); Mean Corpuscular Hemoglobin 31.9 PG (26-34); Mean Corpuscular Volume 91.4 fL (80-100); Monocytes Absolute Auto 400 /uL (0-900); Monocytes Percent Auto 7.5 % (3-14); Neutrophils Absolute Auto 3200 /uL (1500-7000); Neutrophils Percent Auto 56.1 % (50-75); Platelet Count 211 X10^3/uL (150-400); Red Blood Cell Count 4.83 X10^6/uL (4.0-5.2); Red Cell Distribution Width 12.4 % (11.6-14.8); White Blood Cell Count 5.7 X10^3/uL (4.5-11.0)
[2023-03-20 11:03] LABS: HEMOLYSIS < 15 (0-50); Iron 143 ug/dL (37-170)
[2023-03-20 11:05] LABS: Alanine Aminotransferase 43 IU/L (<35); Albumin 4.1 g/dL (3.5-5.0); Albumin Globulin Ratio 1.4 (1.0-2.8); Alkaline Phosphatase 62 U/L (38-126); Aspartate Aminotransferase 34 IU/L (14-36); Bilirubin Total 0.7 mg/dL (0.2-1.3); Blood Urea Nitrogen 15 mg/dL (7-17); Calcium 9.7 mg/dL (8.4-10.2); Carbon Dioxide 26 mmol/L (22-32); Chloride 101 mmol/L (98-107); Estimated Glomerular Filt Rate > 60 mL/min (>60); Globulin 2.9 g/dL (1.7-4.1); Glucose 98 mg/dL (80-110); HEMOLYSIS 19 (0-50); Potassium 4.7 mmol/L (3.4-5.1); Sodium 135 mmol/L (137-145)
[2023-03-20 11:10] LABS: High Sensitivity CRP - Cardiac 1.3 mg/L (1.0-3.0)
[2023-03-20 11:15] LABS: Percent Iron Saturation 41 % (15-50); Total Iron Binding Capacity 345 ug/dL (265-497); Transferrin 237 mg/dL (206-381)
[2023-03-20 11:22] LABS: Free T3, Triiodothyronine Free 4.14 pg/mL (2.77-5.27); Free T4, Direct Thyroxine 1.81 ng/dL (0.78-2.19); Vitamin D 25 Hydroxy (D3) 79.8 ng/mL (30.0-100.0)
== END ==
PROVIDERS: Family Provider Naturopath; PCP Family Medicine; Referring Provider Naturopath; Visit Provider Family Medicine
DX: D50.9 Iron deficiency anemia, unspecified (principal); E06.3 Autoimmune thyroiditis; E55.9 Vitamin D deficiency, unspecified; G93.32 Myalgic encephalomyelitis/chronic fatigue syndrome; K29.60 Other gastritis without bleeding; K44.9 Diaphragmatic hernia without obstruction or gangrene; I10 Essential (primary) hypertension
CPT/HCPCS: 36415; 80053; 82306; 83540; 83550; 84439; 84443; 84481; 85025; 86140

== ENCOUNTER → 2023-03-21 11:54 | Outpatient (CLI) | payer MEDICARE, OTHER, SELFPAY ==
[2023-03-21 12:52] LABS: Ferritin 218 ng/mL (11-264)
== END ==
PROVIDERS: Family Provider Naturopath; PCP Family Medicine; Visit Provider Family Medicine
DX: D50.8 Other iron deficiency anemias (principal)
CPT/HCPCS: 82728

== ENCOUNTER → 2023-08-07 11:23 | Outpatient (CLI) | payer MEDICARE, OTHER, SELFPAY ==
--- NOTE | 2023-08-07 11:25 | DI.MG.S_ITS ---
BILATERAL DIGITAL SCREENING MAMMOGRAM 3D/2D WITH CAD: 08/07/2023 CLINICAL: Routine screening. Comparison is made to exams dated: 03/15/2022 mammogram, 12/16/2020 mammogram, and 12/23/2018 mammogram - [facility]. There are scattered areas of fibroglandular density in both breasts (category b / 25%-50% glandular tissue). Current study was also evaluated with a Computer Aided Detection (CAD) system. No significant masses, calcifications, or other findings are seen in either breast. There has been no significant interval change. IMPRESSION: NEGATIVE There is no mammographic evidence of malignancy. A 1 year screening mammogram is recommended. Based on the Tyrer Cuzick model (a risk assessment model) the patient's lifetime risk is 5.0% and her 10 year risk is 3.7%. According to the ACR, ACS, and NCCN guidelines, an annual breast MRI exam along with mammogram is recommended if the patient's lifetime risk is 20% or greater. This exam was interpreted at Station ID: [id number]. NOTE: For mammograms, a report in lay terms will be sent to the patient. Approximately 15% of breast malignancies will not be visualized mammographically. In the management of a palpable breast mass, a negative mammogram must not discourage biopsy of a clinically suspicious lesion. Electronically Signed By: Jay oconnell/marian:08/08/2023 09:07:01 copy to: AZEEM FREY letter sent: Normal Exam ACR BI-RADS Category 1: Negative 3341F
== END ==
PROVIDERS: Family Provider Naturopath; PCP Family Medicine; Referring Provider Family Medicine; Visit Provider Family Medicine
DX: Z12.31 Encounter for screening mammogram for malignant neoplasm of breast (principal)
CPT/HCPCS: 77063; 77067

== ENCOUNTER → 2023-09-28 14:22 | Outpatient (CLI) | payer MEDICARE, OTHER, SELFPAY ==
--- NOTE | 2023-09-28 14:26 | DI.RAD.S_ITS ---
PROCEDURE: XR SHOULDER RT MIN 2V INDICATIONS: internal rotation painful TECHNIQUE: 3 views of the shoulder were acquired. COMPARISON: None. FINDINGS: Bones: No fractures or dislocations. No suspicious bony lesions. Visualized ribs appear intact. Soft tissues: No suspicious soft tissue calcifications. IMPRESSION: No acute bony abnormality. Approved by: Dharmesh Covington M.D. on 09/28/2023 at 20:01
[2023-09-28 17:08] LABS: HEMOLYSIS < 15 (0-50); Iron 95 ug/dL (37-170)
[2023-09-28 17:10] LABS: Alanine Aminotransferase 44 IU/L (<35); Albumin 4.1 g/dL (3.5-5.0); Albumin Globulin Ratio 1.5 (1.0-2.8); Alkaline Phosphatase 70 U/L (38-126); Aspartate Aminotransferase 35 IU/L (14-36); BUN Creatinine Ratio 22.7 (6-22); Bilirubin Total 0.5 mg/dL (0.2-1.3); Blood Urea Nitrogen 20 mg/dL (7-17); Calcium 10.2 mg/dL (8.4-10.2); Carbon Dioxide 25 mmol/L (22-32); Chloride 103 mmol/L (98-107); Estimated Glomerular Filt Rate > 60 mL/min (>60); Globulin 2.8 g/dL (1.7-4.1); Glucose 103 mg/dL (80-110); HEMOLYSIS < 15 (0-50); Potassium 4.2 mmol/L (3.4-5.1); Sodium 136 mmol/L (137-145); Total Protein 6.9 g/dL (6.3-8.2)
[2023-09-28 17:20] LABS: Percent Iron Saturation 31 % (15-50); Total Iron Binding Capacity 306 ug/dL (265-497); Transferrin 270 mg/dL (206-381)
[2023-09-28 18:51] LABS: Thyroid Stimulating Hormone 0.227 uIU/mL (0.47-4.68)
[2023-09-28 18:55] LABS: Ferritin 232 ng/mL (11-264)
[2023-09-28 19:55] LABS: Free T3, Triiodothyronine Free 3.48 pg/mL (2.77-5.27)
[2023-09-29 18:59] LABS: Anti Thyroglobulin Antibody 316.1 IU/mL (0.0-0.9); Thyroid Peroxidase Antibodies 65 IU/mL (0-34)
[2023-10-05 10:55] LABS: Triiodothyronine T3 Reverse 20.8
== END ==
PROVIDERS: Family Provider Naturopath; PCP Family Medicine; Referring Provider Family Medicine; Visit Provider Family Medicine
DX: M25.511 Pain in right shoulder (principal); M15.0 Primary generalized (osteo)arthritis; E06.3 Autoimmune thyroiditis; R06.2 Wheezing; G93.32 Myalgic encephalomyelitis/chronic fatigue syndrome; D50.9 Iron deficiency anemia, unspecified
CPT/HCPCS: 36415; 73030; 80053; 82728; 83540; 83550; 84439; 84443; 84481; 84482; 86376; 86800

== ENCOUNTER → 2023-11-16 12:16 | Outpatient (CLI) | payer MEDICARE, OTHER, SELFPAY ==
[2023-11-22 14:09] LABS: ANA Screen, IFA Negative (.)
== END ==
LOC: LAB 12:18
PROVIDERS: Family Provider Naturopath; PCP Family Medicine; Referring Provider Dermatology; Visit Provider Dermatology
DX: R21 Rash and other nonspecific skin eruption (principal)
CPT/HCPCS: 36415; 86038

== ENCOUNTER → 2024-07-12 10:59 | Outpatient (CLI) | payer MEDICARE, OTHER, SELFPAY ==
[2024-07-12 11:44] LABS: Influenza A - CEPHEID Flu A NEGATIVE (NEGATIVE); Influenza B - CEPHEID Flu B NEGATIVE (NEGATIVE); Respiratory Syncytial Virus Negative (Negative)
[2024-07-12 11:46] LABS: COVID-19 CEPHEID 4-PLEX PCR Negative (Negative)
== END ==
PROVIDERS: Family Provider Naturopath; PCP Family Medicine; Visit Provider Physician Assistant Surgical
DX: R05.1 Acute cough (principal); R53.83 Other fatigue; J06.9 Acute upper respiratory infection, unspecified; R09.81 Nasal congestion
CPT/HCPCS: 0241U

== ENCOUNTER → 2024-09-17 10:07 | Outpatient (CLI) | payer MEDICARE, OTHER, SELFPAY ==
[2024-09-17 11:03] LABS: Add Manual Diff / Slide Review NO; Basophils Absolute Auto 0 /uL (0-100); Basophils Percent Auto 0.7 % (0-2); Eosinophils Absolute Auto 100 /uL (0-450); Eosinophils Percent Auto 1.5 % (2-4); Hematocrit 44.5 % (36-46); Hemoglobin 15.4 g/dL (12.0-16.0); Lymphocytes Absolute Auto 1900 /uL (1100-4500); Lymphocytes Percent Auto 32.2 % (25-40); Mean Corpuscular HGB Conc 34.7 % (30-36); Mean Corpuscular Hemoglobin 31.7 PG (26-34); Mean Corpuscular Volume 91.4 fL (80-100); Monocytes Absolute Auto 400 /uL (0-900); Monocytes Percent Auto 7.3 % (3-14); Neutrophils Absolute Auto 3400 /uL (1500-7000); Neutrophils Percent Auto 58.3 % (50-75); Platelet Count 232 X10^3/uL (150-400); Red Blood Cell Count 4.87 X10^6/uL (4.0-5.2); Red Cell Distribution Width 12.9 % (11.6-14.8); White Blood Cell Count 5.9 X10^3/uL (4.5-11.0)
[2024-09-17 11:19] LABS: Alanine Aminotransferase 59 IU/L (<35); Albumin 4.2 g/dL (3.5-5.0); Albumin Globulin Ratio 1.8 (1.0-2.8); Alkaline Phosphatase 68 U/L (38-126); Aspartate Aminotransferase 43 IU/L (14-36); BUN Creatinine Ratio 21.2 (6-22); Bilirubin Total 0.8 mg/dL (0.2-1.3); Blood Urea Nitrogen 18 mg/dL (7-17); Calcium 9.7 mg/dL (8.4-10.2); Carbon Dioxide 23 mmol/L (22-32); Chloride 102 mmol/L (98-107); Cholesterol 217 mg/dL (140-199); Estimated Glomerular Filt Rate > 60 mL/min (>60); Globulin 2.4 g/dL (1.7-4.1); Glucose 104 mg/dL (80-110); HDL Cholesterol 48 mg/dL (40-60); HEMOLYSIS < 15 (0-50); LDL Cholesterol Calculated 124 mg/dL (<100); Potassium 4.4 mmol/L (3.4-5.1); Sodium 133 mmol/L (137-145); Total Protein 6.6 g/dL (6.3-8.2); Triglycerides 223 mg/dL (35-150)
[2024-09-17 11:47] LABS: TSH w/ Reflex to FT4 0.72 uIU/mL (0.47-4.68)
[2024-09-17 11:54] LABS: Ferritin 238 ng/mL (11-264)
[2024-09-17 12:10] LABS: Creatinine Urine Random 77.81 mg/dL
[2024-09-17 12:16] LABS: Microalbumin Urine Random < 0.6 mg/dL (0-1.6)
== END ==
PROVIDERS: Family Provider Naturopath; PCP Family Medicine; Referring Provider Family Medicine; Visit Provider Family Medicine
DX: E06.3 Autoimmune thyroiditis (principal); D50.9 Iron deficiency anemia, unspecified; I10 Essential (primary) hypertension
CPT/HCPCS: 36415; 80053; 80061; 82043; 82570; 82728; 84443; 85025

== ENCOUNTER → 2024-11-13 06:59 | Outpatient (CLI) | payer MEDICARE, OTHER, SELFPAY ==
[2024-11-13 09:02] LABS: Alanine Aminotransferase 57 IU/L (<35); Albumin 4.3 g/dL (3.5-5.0); Albumin Globulin Ratio 1.8 (1.0-2.8); Alkaline Phosphatase 64 U/L (38-126); Aspartate Aminotransferase 42 IU/L (14-36); BUN Creatinine Ratio 18.8 (6-22); Bilirubin Total 0.8 mg/dL (0.2-1.3); Blood Urea Nitrogen 16 mg/dL (7-17); Calcium 9.6 mg/dL (8.4-10.2); Carbon Dioxide 24 mmol/L (22-32); Chloride 100 mmol/L (98-107); Cholesterol 231 mg/dL (140-199); Estimated Glomerular Filt Rate > 60 mL/min (>60); Globulin 2.4 g/dL (1.7-4.1); Glucose 100 mg/dL (80-110); HDL Cholesterol 54 mg/dL (40-60); HEMOLYSIS < 15 (0-50); LDL Cholesterol Calculated 149 mg/dL (<100); Potassium 4.6 mmol/L (3.4-5.1); Sodium 132 mmol/L (137-145); Total Protein 6.7 g/dL (6.3-8.2); Triglycerides 138 mg/dL (35-150)
[2024-11-13 09:28] LABS: Ferritin 212 ng/mL (11-264)
[2024-11-14 04:08] LABS: Apolipoprotein B 114 mg/dL (<90)
[2024-11-14 08:12] LABS: CRP, High Sensitivity 2.12 mg/L (0.00-3.00)
== END ==
PROVIDERS: Family Provider Naturopath; PCP Family Medicine; Referring Provider Family Medicine; Visit Provider Family Medicine
DX: D50.9 Iron deficiency anemia, unspecified (principal); E66.9 Obesity, unspecified; I10 Essential (primary) hypertension; R74.01 Elevation of levels of liver transaminase levels; E06.3 Autoimmune thyroiditis
CPT/HCPCS: 36415; 80053; 80061; 82172; 82728; 83695; 86140

== ENCOUNTER → 2024-12-26 11:11 | Outpatient (CLI) | payer MEDICARE, OTHER, SELFPAY ==
--- NOTE | 2024-12-26 11:13 | DI.MG.S_ITS ---
MM screening mammo BI: 12/26/2024. BI-RADS: 1 CLINICAL: 74-year old female for bilateral screening mammogram. Tyrer-Cuzick lifetime risk of 3.8%. No personal or first-degree family history of breast cancer. PRIOR EXAMS 08/07/2023, 03/15/2022, 12/16/2020, 12/23/2018, 08/03/2017, 07/31/2017, 07/13/2016, 07/12/2015. MAMMOGRAPHY TECHNIQUE: 2D and 3D (tomosynthesis) digital mammographic views obtained, with additional images as needed for full coverage. Current study was also evaluated with a Computer Aided Detection (CAD) system. DENSITY B. There are scattered areas of fibroglandular density. MAMMOGRAPHY FINDINGS Bilateral: No suspicious mass, asymmetry, microcalcification, or other abnormality seen. IMPRESSION: * No evidence of malignancy. RECOMMENDATIONS Bilateral * Annual screening mammography. OVERALL ASSESSMENT CATEGORY BI-RADS-1: Negative. The [employer] recommends annual screening mammography beginning at age 40 for women with average risk of breast cancer. ELECTRONICALLY SIGNED: Stephani Smith M.D. on 12/26/2024 at 02:23:36 PM PT Interpreting Station ID: [id number]
== END ==
PROVIDERS: Family Provider Naturopath; PCP Family Medicine; Referring Provider Family Medicine; Visit Provider Family Medicine
DX: Z12.31 Encounter for screening mammogram for malignant neoplasm of breast (principal)
CPT/HCPCS: 77063; 77067

== ENCOUNTER → 2025-03-12 10:15 | Outpatient (CLI) | payer MEDICARE, OTHER, SELFPAY ==
[2025-03-12 10:51] LABS: Appearance Urine UA CLEAR; Bilirubin Urine UA NEGATIVE (NEGATIVE); Color Urine UA YELLOW; Glucose Urine UA NEGATIVE (Negative); Ketones Urine UA NEGATIVE (NEGATIVE); Leukocyte Esterase Urine UA NEGATIVE (NEGATIVE); Nitrite Urine UA NEGATIVE (Negative); Occult Blood Urine UA NEGATIVE (Negative); Protein Urine UA NEGATIVE (Negative); Specific Gravity Urine UA <=1.005 (1.000-1.035); Urobilinogen Urine UA 0.2 E.U./dL (0.2)
[2025-03-12 11:14] LABS: pH Urine UA 7.0 (4.5-8.0)
[2025-03-12 11:35] LABS: Culture Indicated Urine Cult Not Indicated
== END ==
PROVIDERS: PCP Family Medicine; Referring Provider Family Medicine; Visit Provider Family Medicine
DX: R39.9 Unspecified symptoms and signs involving the genitourinary system (principal)
CPT/HCPCS: 81001

== ENCOUNTER → 2025-04-20 10:15 | Outpatient (CLI) | payer MEDICARE, OTHER, SELFPAY ==
[2025-04-20 11:05] LABS: Alanine Aminotransferase 57 IU/L (<35); Albumin 4.3 g/dL (3.5-5.0); Albumin Globulin Ratio 1.7 (1.0-2.8); Alkaline Phosphatase 66 U/L (38-126); Blood Urea Nitrogen 13 mg/dL (7-17); Calcium 9.7 mg/dL (8.4-10.2); Carbon Dioxide 23 mmol/L (22-32); Chloride 98 mmol/L (98-107); Estimated Glomerular Filt Rate > 60 mL/min (>60); Globulin 2.6 g/dL (1.7-4.1); Glucose 98 mg/dL (70-99); HEMOLYSIS < 15 (0-50); Potassium 4.3 mmol/L (3.4-5.1); Sodium 130 mmol/L (137-145); Total Protein 6.9 g/dL (6.3-8.2)
[2025-04-20 11:37] LABS: TSH w/ Reflex to FT4 0.31 uIU/mL (0.47-4.68)
[2025-04-20 11:41] LABS: Ferritin 268 ng/mL (11-264)
[2025-04-20 17:42] LABS: Free T3, Triiodothyronine Free 3.86 pg/mL (2.77-5.27); Free T4, Direct Thyroxine 1.69 ng/dL (0.78-2.19)
== END ==
PROVIDERS: PCP Family Medicine; Referring Provider Family Medicine; Visit Provider Family Medicine
DX: R74.01 Elevation of levels of liver transaminase levels (principal); E06.3 Autoimmune thyroiditis; D50.9 Iron deficiency anemia, unspecified; E78.5 Hyperlipidemia, unspecified
CPT/HCPCS: 36415; 80053; 82728; 84439; 84443; 84481

== ENCOUNTER → 2025-06-19 09:09 | Outpatient (CLI) | payer MEDICARE, OTHER, SELFPAY ==
[2025-06-19 10:26] LABS: Hematocrit 44.3 % (36-46); Hemoglobin 15.3 g/dL (12.0-16.0); Mean Corpuscular HGB Conc 34.6 % (30-36); Mean Corpuscular Hemoglobin 31.3 PG (26-34); Mean Corpuscular Volume 90.4 fL (80-100); Platelet Count 233 X10^3/uL (150-400)
[2025-06-19 10:41] LABS: Alanine Aminotransferase 53 IU/L (<35); Albumin 4.2 g/dL (3.5-5.0); Albumin Globulin Ratio 1.7 (1.0-2.8); Alkaline Phosphatase 64 U/L (38-126); Blood Urea Nitrogen 13 mg/dL (7-17); Calcium 9.6 mg/dL (8.4-10.2); Carbon Dioxide 26 mmol/L (22-32); Chloride 99 mmol/L (98-107); Estimated Glomerular Filt Rate > 60 mL/min (>60); Globulin 2.5 g/dL (1.7-4.1); Glucose 93 mg/dL (70-99); HEMOLYSIS < 15 (0-50); Potassium 4.4 mmol/L (3.4-5.1); Sodium 135 mmol/L (137-145); Total Protein 6.7 g/dL (6.3-8.2)
[2025-06-19 11:16] LABS: Ferritin 282 ng/mL (11-264)
[2025-06-22 17:36] LABS: Osmolality, Serum 279 mOsmol/kg (280-301)
== END ==
PROVIDERS: PCP Family Medicine; Referring Provider Family Medicine; Visit Provider Family Medicine
DX: R74.01 Elevation of levels of liver transaminase levels (principal); E87.1 Hypo-osmolality and hyponatremia; I10 Essential (primary) hypertension
CPT/HCPCS: 36415; 80053; 82570; 82728; 83930; 83935; 84300; 85027